=== PATIENT | male | born 1975 | race Caucasian/White ===

== ENCOUNTER 2017-03-06 12:33 | Emergency (ER) | payer OTHER ==
--- NOTE | ~2017-03-06 | CR253 ---
[facility]. [facility] A Service of [facility] & [facility] RADIOLOGY TEXT RESULTS PATIENT: MICHAEL GOFF LOCATION: SED : 75 UNIT #: [id number] AGE: [address]: Darlin Warren APRN SEX: M ORDER DR: [id number] [place] [id number] E MR#: [id number] Acc #: [id number] NAME: MICHAEL GOFF : 1975 SEX: M STUDY DATE/TIME: 03/06/2017 12:55 UNIT: SED ROOM: STUDY DESCRIPTION: CR Tibia and Fibula 2 Views Rt Attending Physician: Darlin Warren A.P.R.N. Ordering Physician: Darlin Warren A.P.R.N. Primary Care Physician: Primary Care Physician No MEDICAL IMAGING REPORT This report is preliminary unless electronic signature is present. EXAM Right tibia-fibula series, 03/06/2017 HISTORY 41-year-old male in the ED with redness and inflammation involving the lower leg, possible cellulitis. Symptoms for about 5 days. TECHNIQUE AP and lateral radiographs of the right tibia and fibula. FINDINGS There is a tiny dense subcutaneous foreign body along the medial aspect of the mid calf measuring about 4.0 mm in size. No visible soft tissue gas or additional radiopaque soft tissue foreign body. Osseous structures of the tibia and fibula appear normal. IMPRESSION Single tiny subcutaneous foreign body within the midcalf as noted above. Dictated by... Guicho Rivera M.D. THIS IS AN ELECTRONICALLY VERIFIED REPORT Guicho Rivera M.D. at 03/06/2017 6:48 PM LIZ/vic TD: 03/06/2017 14:14 JOB #: [id number] MEDICAL IMAGING REPORT Page 1 of 1
[~2017-03-06 12:33] MED LIST: BENADRYL PO; BENADRYL25 M1 PO; CATAPRES0.1 MG PO; EC-NAPROSYN500 MG PO; FAMOTIDINE PO; FLEXERIL PO; KEFLEX PO; KEFLEX500 M2 PO; METHADONE PO; METHADOSE PO; MOTRIN PO; NAPROSYN500 MG PO; NAPROXEN PO; NO MEDICATIONS; PAXIL PO; PEN-VEE K PO; PHENERGAN PO; PHENERGAN25 MG PO; PREDNISONE PO; PRILOSEC PO; ULTRACET TABLET1 TAB PO; ULTRAM PO; VICODIN PO; VOLTAREN50 MG PO; VOLTAREN75 MG PO; ZOFRAN ODT4 MG SL; ZOFRAN PO
[2017-03-06] MEDS ORDERED: KLONOPIN PO (12:34)
[2017-03-06] MEDS ORDERED: LEXAPRO PO (12:34)
== END 2017-03-06 14:31 | disposition home or self-care (01) ==
LOC: SED 12:33
DX: L03.115 Cellulitis of right lower limb (principal); M79.5 Residual foreign body in soft tissue; Z23 Encounter for immunization
CPT/HCPCS: 73590; 90471; 90715; 99283

== ENCOUNTER 2017-03-20 10:15 | Emergency (ER) | payer OTHER ==
[~2017-03-20 10:15] MED LIST changes: +KLONOPIN PO; +LEXAPRO PO
[2017-03-20] MEDS ORDERED: METHADONE PO (10:19)
[2017-03-20 10:59] LABS: BASOPHIL% 0.5 % (0-2.5); HEMATOCRIT 39.2 % (38.0-50.0); HEMOGLOBIN 13.3 gm/dL (13.0-16.0); LYMPHOCYTE# 1.4 X10e3 (1.0-3.5); LYMPHOCYTE% 29.9 % (17.0-45.0); MEAN CORPUSCULAR HEMOGLOBIN 30.1 PG (28-34); MEAN CORPUSCULAR HGB CONC 33.8 g/dL (30-36); MEAN PLATELET VOLUME 7.1 FL (6.5-11.5); MONOCYTE# 0.3 X10e3 (0-1.0); MONOCYTE% 5.9 % (3.0-12.0); NEUTROPHIL# 3.1 X10e3 (1.5-7.1); NEUTROPHIL% 63.7 % (40-75); PLATELET COUNT 316 X10e3 (140-420); RED BLOOD COUNT 4.41 X10e (3.90-5.60); RED CELL DISTRIBUTION WIDTH 13.2 % (11.0-15.5); WHITE BLOOD COUNT 4.8 X10e3 (4.0-10.5)
[2017-03-20 11:06] LABS: DIFF IND NO
[2017-03-20 11:19] LABS: ALBUMIN SERUM 4.2 g/dL (3.5-5.0); BILIRUBIN, DIRECT 0.1 mg/dL (0.0-0.2); BILIRUBIN,INDIRECT 0.6 mg/dL (0.0-0.9); BILIRUBIN,TOTAL 0.7 mg/dL (0.2-2.0); CALCIUM SERUM 8.7 mg/dL (8.4-10.2); GLOM FILT RATE Estimated 93.1 mL/min (>60); POTASSIUM 4.6 mmol/L (3.5-5.1); PROTEIN TOTAL SERUM 7.5 g/dL (6.0-8.3)
[2017-03-20 12:49] LABS: URINE SOURCE CLEAN CATCH
[2017-03-20 12:51] LABS: URINE APPEARANCE CLEAR; URINE BILIRUBIN NEG (NEG); URINE BLOOD NEG (NEG); URINE COLOR YELLOW; URINE GLUCOSE NEG (NORM); URINE KETONE 1+ (NEG); URINE LEUKOCYTE ESTERASE NEG (NEG); URINE NITRATE NEG (NEG); URINE PROTEIN NEG (NEG); URINE SPECIFIC GRAVITY <=1.005 (1.003-1.035); URINE UROBILINOGEN 0.2 MG/DL (NORM)
[2017-03-20 12:53] LABS: MICRO INDICATED? NO
== END 2017-03-20 13:44 | disposition home or self-care (01) ==
LOC: SED 10:15
PROVIDERS: Student in an Organized Health Care Education/Training Program
DX: E86.0 Dehydration (principal); F32.9 Major depressive disorder, single episode, unspecified; F17.210 Nicotine dependence, cigarettes, uncomplicated; Z79.899 Other long term (current) drug therapy
CPT/HCPCS: 36415; 80048; 80076; 81003; 82150; 83690; 85025; 96374; 96375; 99284; C9113; J2405; J2550